=== PATIENT | male | born 1955 | race Caucasian/White ===

== ENCOUNTER 2022-05-09 12:16 | Day surgery (SDC) | payer MEDICARE, SELFPAY ==
[2022-05-02 14:23] VITALS: BMI 30.3
[2022-05-09] VITALS (10 sets, daily range): BP systolic 119–159; BP diastolic 74–99; PULSE 62–79; RESP 16–20; TEMP 36.4–36.6; O2SAT 94–98
[2022-05-09] MEDS: Lactated Ringers 1,000 ML 50 ML IVCONT (13:26)
--- NOTE | 2022-05-09 14:17 | HO.ANESPROP2 ---
[facility] Past Medical History Medical History Allergic rhinitis GERD (gastroesophageal reflux disease) HTN (hypertension) Obesity Surgical History Surgical History History of appendectomy History of back surgery History of surgery on right wrist Hx of colonoscopy History of Problems with Anesthesia: No Social History Social History Patient Tobacco Use Status: Former Tobacco user Quit Date: 15 yrs ago Use of substances other than those prescribed or required for medical reasons: No Are you DNR?: No Advance Directives: No Advance Directives Information Provided: Yes Meds Allergies Allergy/AdvReac Type Severity Reaction Status Date / Time No Known Allergies Allergy Verified 05/09/22 12:56 Active Medications: Current Medications Lactated Ringer's (Lr) 1,000 mls @ 50 mls/hr IVCONT .Q20H GREGG Last Admin: 05/09/22 13:26 Dose: 50 mls/hr Home Medications Medication Instructions Recorded Confirmed Last Taken Type cetirizine 10 mg capsule (Zyrtec) 10 mg PO DAILY 05/02/22 05/02/22 Unknown History lisinopril 10 mg tablet 10 mg PO DAILY 05/02/22 05/02/22 05/09/22 07:00 History Exam Exam Date and Time: May 09, 2022 1417 Height,Weight and Vital Signs: Height 5 ft 10.8 in Weight 98 kg Last Vital Signs Temp 97.8 F 05/09/22 13:02 Pulse 65 05/09/22 13:02 Resp 16 05/09/22 13:02 BP 119/74 05/09/22 13:02 Pulse Ox 96 05/09/22 13:02 O2 Del Method 05/09/22 13:02 Airway Mallampati Class: III (Edentulous) TM Dist: >3cm Neck ROM: Full Loose/Missing/Broken Teeth: Yes, Upper and Lower Heart: RRR Lungs: CTA Assessment and Plan Assessment Anesthesia Assessment: Anesthesia Plan Discussed and Chart Reviewed Final Anesthetic Review History of Problems with Anesthesia: No NPO: Yes ASA Class: II Final Preanesthetic Review: Meds/Allgs Chart Reviewed, Consent Obtained/Reviewed and Anes Risks/Benef Reviewed Patient Risk: Low Procedure Risk: Low Anesthetic Plan Anesthetic Plan: GA Disposition: Standard PACU
--- NOTE | 2022-05-09 14:58 | PC.NURSE ---
gave report to parrish valle. out of unit at [id number]
--- NOTE | 2022-05-09 16:09 | HO.OPHTHAL ---
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 Esotropia. Procedures 1. Right superior oblique tendon tuck of 5 mm 2. Right medial rectus recession of [address] Daniel anesthesia general complications none. The patient was brought to the operating room placed under general anesthesia. The patient's right eye was prepped and draped in the usual sterile ophthalmic fashion. A lid speculum was placed in the right eye and an incision was made at bare sclera in the superotemporal fornix. The superior rectus muscle was placed on a large muscle hook and the superior oblique tendon carefully identified and grasped with a small tenotomy hook. It was transferred to the tendon Anselmo and a 5 mm tuck was tied off in a temporary fashion with a Mersilene suture. Repeated forced ductions showed resistance to elevation in adduction as the inferior limbus cross the intercanthal line. The tire was converted to a permanent ties and conjunctiva was closed with interrupted Vicryl sutures. An incision was then made down to bare sclera in the inferior nasal fornix. The medial rectus muscle was hooked and secured with a double-armed Vicryl suture. The muscle was then disinserted from the globe and reattached to a position 4 mm behind its original insertion using a hang back technique. Conjunctiva was closed with interrupted Vicryl sutures. The patient was then awoken from general anesthesia and discharged to postoperative recovery in good condition.
[2022-05-09] MEDS: Acetaminophen 325 MG TABLET 650 MG PO (16:41)
[2022-05-09] MEDS: oxyCODONE HCl Immed Release 5 MG TABLET PO (17:00)
== END 2022-05-09 17:47 | disposition home or self-care (01) ==
PROVIDERS: Visit Provider Ophthalmology
DX: H53.2 Diplopia (principal); H49.11 Fourth [trochlear] nerve palsy, right eye; H50.00 Unspecified esotropia; I10 Essential (primary) hypertension; J30.9 Allergic rhinitis, unspecified; K21.9 Gastro-esophageal reflux disease without esophagitis; E66.9 Obesity, unspecified; Z79.899 Other long term (current) drug therapy; Z87.891 Personal history of nicotine dependence
CPT/HCPCS: 67318; 67311; C1713; J1100; J1885; J2250; J2405; J3010